=== PATIENT | female | born 1975 | race Caucasian/White ===

== ENCOUNTER 2017-08-25 21:33 | Emergency (ER) | payer SELFPAY ==
[2017-08-25] MEDS: IPRATRPIUM/ALBUTEROL 0.5/2.5MG 3 ML NEBU. NEB ×2 (22:31)
[2017-08-25] MEDS: predniSONE 20 MG TABLET PO ×2 (23:13)
[2017-08-25] MEDS: ALBUTEROL SULFATE 2.5 MG/3 ML NEBU. NEB ×2 (23:16)
[2017-08-25 23:31] LABS: INFLUENZA A PATIENT NEGATIVE (NEGATIVE); INFLUENZA B PATIENT POSITIVE (NEGATIVE); OBC FLU VALID
== END 2017-08-26 00:23 | disposition home or self-care (01) ==
LOC: ER 08-26 00:23
DX: J10.1 Influenza due to other identified influenza virus with other respiratory manifestations (principal); F17.200 Nicotine dependence, unspecified, uncomplicated; Z88.1 Allergy status to other antibiotic agents; Z88.5 Allergy status to narcotic agent; Z88.8 Allergy status to other drugs, medicaments and biological substances; Z90.49 Acquired absence of other specified parts of digestive tract; Z90.710 Acquired absence of both cervix and uterus; Z87.01 Personal history of pneumonia (recurrent)
CPT/HCPCS: 87804; 87804-59; 94640; 99284; J7512; J7613; J7620

== ENCOUNTER 2017-09-06 14:25 | Emergency (ER) | payer SELFPAY ==
[2017-09-06] MEDS: PROCHLORPERAZINE 5 MG TABLET. PO (15:27)
[2017-09-06] MEDS: HYDROcodone/APAP 10/325 1 TAB TABLET PO (15:30)
== END 2017-09-06 15:56 | disposition left against medical advice (07) ==
LOC: ER 15:56
DX: R51 Headache (principal); R22.0 Localized swelling, mass and lump, head; M79.7 Fibromyalgia; Z88.1 Allergy status to other antibiotic agents; Z88.5 Allergy status to narcotic agent; Z88.8 Allergy status to other drugs, medicaments and biological substances
CPT/HCPCS: 99282; Q0164